=== PATIENT | female | born 1940 | race Native Hawaiian/Other Pacific Islander ===

== ENCOUNTER 2017-04-14 16:46 | Emergency (ER) | payer MEDICARE ==
[2017-04-14 16:46] VITALS: BMI 23.2
[2017-04-14 18:00] LABS: BASO % 0.6 % (0.0-2.0); EOS % 0.6 % (0.0-4.0); HEMATOCRIT 41.3 % (34.0-47.0); LYMPH # 1.7 K/uL (1.0-4.3); LYMPH % 23.5 % (20.0-40.0); MEAN CELL VOLUME 97.8 fL (81.0-99.0); MEAN CORPUSCULAR HGB CONC 34.8 g/dL (33.0-37.0); MEAN PLATELET VOLUME 6.4 fL (7.2-11.7); MONO # 0.6 K/uL (0.0-0.8); MONO % 7.9 % (0.0-10.0); RED CELL DISTRIBUTION WIDTH 12.7 % (11.5-14.5); WHITE BLOOD COUNT 7.3 K/uL (4.8-10.8)
[2017-04-14 18:08] LABS: CHLORIDE 96 mmol/L (98-107)
[2017-04-14 18:09] LABS: POTASSIUM 3.6 mmol/L (3.6-5.2); SODIUM 129 mmol/L (132-148)
[2017-04-14 18:11] LABS: ALB/GLOB RATIO 1.3 (1.0-2.1); ALKALINE PHOSPHATASE 58 U/L (38-126); ALT/SGPT 38 U/L (9-52); AST/SGOT 35 U/L (14-36); BILIRUBIN,TOTAL 0.7 mg/dL (0.2-1.3); BLOOD UREA NITROGEN 14 mg/dL (7-17); CARBON DIOXIDE 22 mmol/L (22-30); GFR AFRICAN-AMERICAN > 60; GLUCOSE,RANDOM 113 mg/dL (65-105); TOTAL PROTEIN 7.7 g/dL (6.3-8.3)
[2017-04-14 18:12] LABS: CALCIUM 9.5 mg/dl (8.6-10.4)
--- NOTE | 2017-04-14 18:26 | C.PDOC ---
History Of Present Illness Patient is a 76 y/o female, with a PMHx of gallbladder disease, who presents to the ED with a complaint of epigastric and RUQ pain. Patient reports to have been experiencing abdominal discomfort for awhile, stating to have "constant pain" in abdomen. Patient received a gallbladder ultrasound last week revealing an edematous, thickened wall and a few stones but no evidence of obstruction; patient was advised to follow up with PCP this week, but experienced severe abdominal pain last night, prompting ED visit. Admits to feeling nauseous but denies fever, vomiting, and normal eating or drinking since last night. No other physical complaints at this time. Time Seen by Provider: 04/14/17 17:52 Chief Complaint (Nursing): Abdominal Pain History Per: Patient History/Exam Limitations: no limitations Onset/Duration Of Symptoms: Days (severe onset of symptoms began last night; consistent abdominal pain for awhile. ) Current Symptoms Are (Timing): Still Present Location Of Pain/Discomfort: RUQ, Epigastric Associated Symptoms: Nausea, Loss Of Appetite. denies: Fever, Vomiting Recent travel outside of the [place]: No Past Medical History Reviewed: Historical Data, Nursing Documentation, Vital Signs Vital Signs: Last Vital Signs Temp 98.2 F 04/14/17 19:28 Pulse 85 04/14/17 19:28 Resp 18 04/14/17 19:28 BP 140/87 04/14/17 19:28 Pulse Ox 98 04/14/17 21:37 - Medical History PMH: Arthritis (KNEES), Asthma (NEVER HOSPITALIZED LAST USE INHALER SEPTEMBER 19, 2013), HTN, Hypercholesterolemia Denies: Chronic Kidney Disease Surgical History: Endoscopy, Pacemaker - [facility] Procedures C.A.T. SCAN OF ABDOMEN (09/26/13) PERCUTAN NEEDLE BX OF LIVER (09/26/13) Family History: States: No Known Family Hx - Social History Hx Alcohol Use: No Hx Substance Use: No - Immunization History Hx Tetanus Toxoid Vaccination: No Hx Influenza Vaccination: No Hx Pneumococcal Vaccination: No Review Of Systems Constitutional: Negative for: Fever, Chills Gastrointestinal: Positive for: Nausea, Abdominal Pain (epigastric and RUQ). Negative for: Vomiting Physical Exam - Physical Exam Appears: Non-toxic, Other (shakey, uncomfortable ) Skin: Normal Color, Warm, Dry Head: Atraumatic, Normacephalic Oral Mucosa: Moist Chest: Symmetrical Cardiovascular: Rhythm Regular, No Murmur Respiratory: Normal Breath Sounds, No Rales, No Rhonchi, No Stridor Gastrointestinal/Abdominal: Bowel Sounds (quiet), Tenderness (epigastrium and RUQ), Guarding (epigastrium and RUQ) Neurological/Psych: Oriented x3, Normal Speech, Normal Cognition ED Course And Treatment - Laboratory Results Result Diagrams: 04/14/17 17:54 04/14/17 17:54 Lab Interpretation: No Acute Changes ECG: Interpreted By Me ECG Rhythm: AV Paced ECG Interpretation: No Acute Changes O2 Sat by Pulse Oximetry: 98 (room air) Pulse Ox Interpretation: Normal - CT Scan/US No standard instances Other Rad Studies (CT/US): Read By Radiologist, Radiology Report Reviewed CT/US Interpretation: Spleen: unremarkable. Adrenals: Adrenals are unremarkable. Kidneys and ureters: Kidneys and ureters are unremarkable. Stomach and bowel: Stomach is almost empty. Rotation is normal. Small bowel is distended with. scattered air-fluid levels. There is no obstruction. There is fecalization of the distal ileum. There is. cecal diverticula. Appendix is not visualized. There is no pericecal inflammation.There is a moderately. large amount of stool in the cecum.Colon is incompletely distended which limits evaluation. There is. scattered diverticulosis. Appendix: See stomach and bowel. PELVIS: Bladder: unremarkable. Reproductive: There are coarse calcifications in the uterus. Uterus is prominent for age. Adnexa are. unremarkable. ABDOMEN and PELVIS: Intraperitoneal space: There is no free air or free fluid. Bones/joints: Bony structures are osteopenic with degenerative change. Soft tissues: unremarkable. Vasculature: There are vascular calcifications. Lymph nodes: unremarkable. IMPRESSION: Limited by lack of oral and intravenous contrast, indistinct pancreatic margins, motion. versus pancreatitis, correlation with laboratory values advised; dilated small bowel more suggestive of. ileus than obstruction; possible constipation; diverticulosis without CT findings of diverticulitis Reevaluation Time: 21:59 Reassessment Condition: Improved - Physician Consult Information Time Consulting Physician Contacted: :59 Physician Contacted: Faizan Benedict Outcome Of Conversation: covering for Dr Jasso. Patient to be discharged and can follow up with Dr jasso on Sunday. Medical Decision Making Medical Decision Making: Plan: Abd/Pelvis CT, EKG, and UA ordered. Morphine and Zofran administered. Disposition Counseled Patient/Family Regarding: Studies Performed, Diagnosis, Need For Followup - Disposition Referrals: Steve Vogt MD [Staff Provider] - Sven Rodrigez MD [Medical Doctor] - Disposition: HOME/ ROUTINE Disposition Time: 22:02 Condition: STABLE Instructions: Acute Abdominal Pain (ED) Forms: [employer] (Arabic) - Clinical Impression Clinical Impression: Abdominal pain - Scribe Statement The provider has reviewed the documentation as recorded by the Scribe Elodia Hickman All medical record entries made by the Scribe were at my direction and personally dictated by me. I have reviewed the chart and agree that the record accurately reflects my personal performance of the history, physical exam, medical decision making, and the department course for this patient. I have also personally directed, reviewed, and agree with the discharge instructions and disposition.
[2017-04-14 18:53] LABS: RBC URINE < 1 /hpf (0-3); URINE BILIRUBIN NEGATIVE (NEGATIVE); URINE BLOOD 1+ (NEGATIVE); URINE COLOR Colorless (YELLOW); URINE GLUCOSE (UA) 1+ mg/dL (Normal); URINE KETONE NEGATIVE (NEGATIVE); URINE LEUKOCYTE ESTERASE NEG Leu/uL (Negative); URINE PROTEIN NEGATIVE (NEGATIVE); URINE UROBILINOGEN NORMAL mg/dL (0.2-1.0); WBC URINE < 1 /hpf (0-5)
[2017-04-14 19:29] VITALS: RESP 18; TEMP 98.2
--- NOTE | 2017-04-14 20:56 | CT ---
EXAM: CT Abdomen and Pelvis Without Intravenous Contrast EXAM DATE/TIME: 04/14/2017 6:50 PM CLINICAL HISTORY: 76 years old, female; Pain; Abdominal pain; Patient HX: 3--16 TECHNIQUE: Axial computed tomography images of the abdomen and pelvis without intravenous contrast. All CT scans at this facility use one or more dose reduction techniques, viz.: automated exposure control; ma/kV adjustment per patient size (including targeted exams where dose is matched to indication; i.e. head); or iterative reconstruction technique. Coronal and sagittal reformatted images were created and reviewed. COMPARISON: CT - ABD PELVIS PO CONTRAST ONLY 2015-08-26 08:54 FINDINGS: Lower thorax: There is streak artifact from pacemaker leads. Heart size is normal. Lung bases are hyperinflated. There is minimal scarring and atelectasis. There is minimal nodular pleural thickening. ABDOMEN: Liver: No focal abnormalities are seen in the liver. There is prominence of the left lobe, unchanged. Gallbladder and bile ducts: Gallbladder is partially distended. Common duct is prominent. Pancreas: No focal pancreatic lesions are identified. Pancreatic head is not well defined, motion versus edema. Spleen: unremarkable Adrenals: Adrenals are unremarkable. Kidneys and ureters: Kidneys and ureters are unremarkable. Stomach and bowel: Stomach is almost empty. Rotation is normal. Small bowel is distended with scattered air-fluid levels. There is no obstruction. There is fecalization of the distal ileum. There is cecal diverticula. Appendix is not visualized. There is no pericecal inflammation.There is a moderately large amount of stool in the cecum.Colon is incompletely distended which limits evaluation. There is scattered diverticulosis Appendix: See stomach and bowel PELVIS: Bladder: unremarkable Reproductive: There are coarse calcifications in the uterus. Uterus is prominent for age. Adnexa are unremarkable. ABDOMEN and PELVIS: Intraperitoneal space: There is no free air or free fluid. Bones/joints: Bony structures are osteopenic with degenerative change. Soft tissues: unremarkable Vasculature: There are vascular calcifications. Lymph nodes: unremarkable IMPRESSION: Limited by lack of oral and intravenous contrast, indistinct pancreatic margins, motion versus pancreatitis, correlation with laboratory values advised; dilated small bowel more suggestive of ileus than obstruction; possible constipation; diverticulosis without CT findings of diverticulitis Additional findings as described above.
[2017-04-14 21:38] VITALS: O2SAT 98
[2017-04-14 22:03] VITALS: BP 135/78; PULSE 80
--- NOTE | 2017-04-16 12:45 | CARD ---
APPROVED REPORT EKG Measurement Heart [id number] <Conclusion> Atrial-sensed ventricular-paced rhythm Abnormal ECG
== END 2017-04-14 22:13 | disposition home or self-care (01) ==
LOC: C.ER 16:46
DX: R10.11 Right upper quadrant pain (principal); R10.13 Epigastric pain; Z95.0 Presence of cardiac pacemaker
CPT/HCPCS: 74176; 80053; 81001; 83690; 84484; 85025; 93005; 96374; 96375; 99285; J2270; J2405

== ENCOUNTER 2017-09-03 07:25 | Day surgery (SDC) | payer MEDICARE ==
[2017-08-31 11:13] VITALS: BMI 21.2
[2017-09-03] MEDS ORDERED: Simethicone 40 mg/0.6 ml Liquid (30 ml) ONE (08:48)
--- NOTE | 2017-09-03 09:19 | CP.SDSHP ---
Same Day Surgery H & P - History Proposed Procedure: Colonoscopy Pre-Op Diagnosis: Family history of colon cancer, brother age 72 - Previous Medical/Surgical History Cardiac: Hypertension Misc: Hepatitis, Other Comments: Hepatitis B, breast cancer Previous Surgical History: Breast lumpectomy, pacemaker - Allergies Allergies: Allergies choline fenofibrate [From Trilipix] Allergy (Verified 04/14/17 16:58) RASH shrimp Allergy (Verified 04/14/17 16:58) RASH - Current Medications Current Medications: See reconciliation sheet - Physical Exam General Appearance: WD WN female in NAD Vital Signs: Vital Signs 09/03/17 07:56 Temperature 97.1 F L Pulse Rate 83 Respiratory 18 Rate Blood Pressure 115/69 O2 Sat by Pulse 100 Oximetry Mental Status: Alert & Oriented x3 Neuro: WNL Heart: WNL Lungs: WNL GI: WNL - {Optional Preform as Required} Abdomen: WNL - Impression Impression: Family history of colon cancer Pt. Evaluated Today:Candidate for Anesthesia & Procedure: Yes - Date & Time Date: 09/03/17 Time: 09:19 Short Stay Discharge - Short Stay Discharge Admitting Diagnosis/Reason for Visit: DIVERTICULAR OF COLON Disposition: HOME/ ROUTINE
[2017-09-03] MEDS ORDERED: Propofol 10 mg/ml Inj (20 ML) ONE (09:23)
[2017-09-03] MEDS ORDERED: Etomidate 20 mg/10ml Inj IV ONE (09:23)
[2017-09-03 10:48] VITALS: TEMP 96
[2017-09-03 10:51] VITALS: O2SAT 100
[2017-09-03 10:57] VITALS: BP 130/75; PULSE 68; RESP 18
== END 2017-09-03 11:25 | disposition home or self-care (01) ==
LOC: C.ENDO 07:25
PROVIDERS: ATTEND Internal Medicine Gastroenterology
DX: K57.30 Diverticulosis of large intestine without perforation or abscess without bleeding (principal); K64.8 Other hemorrhoids; I10 Essential (primary) hypertension
CPT/HCPCS: 45378; J2001; J2704

== ENCOUNTER → 2017-11-26 | Day surgery (SDC) | payer MEDICARE ==
[~2017-11-26] MED LIST: Etomidate 20 mg/10ml Inj IV ONE; Propofol 10 mg/ml Inj (20 ML) ONE
[2017-11-26 07:47] VITALS: BMI 22.2
[2017-11-26 08:13] VITALS: TEMP 97
--- NOTE | 2017-11-26 09:47 | CP.SDSHP ---
Same Day Surgery H & P - History Proposed Procedure: EGD Pre-Op Diagnosis: Upper abdominal pain, early satiety, weight loss - Previous Medical/Surgical History Cardiac: Hypertension Pulmonary: Asthma Misc: Other Comments: Breast cancer, GERD, hyperlipidemia, osteoarthritis Previous Surgical History: Lumpectomy, PPM insertion - Allergies Allergies: Allergies choline fenofibrate [From Trilipix] Allergy (Verified 11/26/17 08:00) RASH shrimp Allergy (Verified 11/26/17 08:00) RASH - Current Medications Current Medications: See reconciliation sheet - Physical Exam General Appearance: WN female in NAD Vital Signs: Vital Signs 11/26/17 08:04 Temperature 97 F L Pulse Rate 80 Respiratory 17 Rate Blood Pressure 136/72 O2 Sat by Pulse 97 Oximetry Mental Status: Alert & Oriented x3 Neuro: WNL Heart: WNL Lungs: WNL GI: WNL - {Optional Preform as Required} Abdomen: WNL - Impression Impression: Upper abdominal pain, early satiety, weight loss Pt. Evaluated Today:Candidate for Anesthesia & Procedure: Yes - Date & Time Date: 11/26/17 Time: 09:48 Short Stay Discharge - Short Stay Discharge Admitting Diagnosis/Reason for Visit: HIATAL HERNIA Disposition: HOME/ ROUTINE
[2017-11-26 10:37] VITALS: O2SAT 100
[2017-11-26 12:27] VITALS: BP 115/70; PULSE 61; RESP 14
== END | disposition home or self-care (01) ==
LOC: C.ENDO 07:21
PROVIDERS: ATTEND Internal Medicine Gastroenterology
DX: K44.9 Diaphragmatic hernia without obstruction or gangrene (principal); K29.70 Gastritis, unspecified, without bleeding; K31.7 Polyp of stomach and duodenum; K21.9 Gastro-esophageal reflux disease without esophagitis; I10 Essential (primary) hypertension; J45.909 Unspecified asthma, uncomplicated; E78.5 Hyperlipidemia, unspecified; M19.90 Unspecified osteoarthritis, unspecified site; Z85.3 Personal history of malignant neoplasm of breast; Z95.0 Presence of cardiac pacemaker; Z98.890 Other specified postprocedural states; Z88.8 Allergy status to other drugs, medicaments and biological substances; Z91.013 Allergy to seafood
CPT/HCPCS: 43239; 88305; 88312; 88313; 88342; J2001; J2704